=== PATIENT | male | born 1995 | race Caucasian/White ===

== ENCOUNTER 2023-06-06 13:37 | Emergency (ER) | payer MEDICAID ==
[~2023-06-06] VITALS: Ht 162.6 cm; Wt 77.1 kg
[2023-06-06 13:39] VITALS: BP_SYST 159; PULSE 78; RESP 20; TEMP 98.3; O2SAT 99
[2023-06-06] MEDS ORDERED: NAPR-688 PO (15:54)
[2023-06-06] MEDS ORDERED: ZAN4 PO (15:54)
[2023-06-06 16:00] VITALS: BP_SYST 159; PULSE 78; RESP 20; TEMP 98.3; O2SAT 99
== END 2023-06-06 16:02 | disposition home or self-care (01) ==
LOC: SED 13:37
DX: S29.012A Strain of muscle and tendon of back wall of thorax, initial encounter (principal); Z79.899 Other long term (current) drug therapy; X50.1XXA Overexertion from prolonged static or awkward postures, initial encounter; Y93.89 Activity, other specified; Y92.89 Other specified places as the place of occurrence of the external cause; Y99.8 Other external cause status
CPT/HCPCS: 72072; 99283